=== PATIENT | male | born 1985 | race Hispanic/Latino ===

== ENCOUNTER 2020-03-10 15:07 | Emergency (ER) | payer SELFPAY ==
--- NOTE | ~2020-03-10 | XR_ITS ---
EXAMINATION: XR ankle LT min 3V DATE: 03/10/2020 15:32 INDICATION: Left ankle injury and pain. TECHNIQUE: 4 views of left ankle were obtained. COMPARISON: None. FINDINGS: There is an oblique fracture of distal fibula with medial aspect of the fracture line 3 mm distal to the level of the tibial plafond. The distal fracture fragment demonstrates 1 mm posterolate ral displacement. Joint spaces are normal. There is ankle soft tissue swelling. IMPRESSION: 1. Oblique fracture of distal fibula. Reviewed, dictated and finalized at location A. [facility]
[2020-03-10 15:21] VITALS: BP 138/85; PULSE 80; RESP 20; TEMP 36.9; O2SAT 99
--- NOTE | 2020-03-10 15:44 | ED.LOWEXIN ---
HPI - Extremity Injury (Lower) General Chief Complaint: Extremity Injury, Lower Stated Complaint: ankle Time Seen by Provider: 03/10/20 15:25 Source: patient Mode of arrival: ambulatory Limitations: no limitations History of Present Illness HPI Narrative: Patient states a few minutes ago he stepped wrong and heard his ankle pop. He says he has had no pain. Lateral ankle has swelled moderately since this happened. He comes in because he heard a pop when he stepped funny. He has no pain he says. Related Data Allergies Allergy/AdvReac Type Severity Reaction Status Date / Time No Known Allergies Allergy Verified 03/10/20 15:28 Review of Systems Review of Systems: Narrative: Review of systems negative except as above. [facility] Past Medical History Medical History No significant past medical history Surgical History Surgical History No significant past surgical history Family History Family History Mother of unknown cause Social History Social History (Updated 03/10/20 @ 16:19 by Mic Mas MD) Smoking status: Current some day smoker Additional smoking assessment comments: He smokes at times when he is drinking Alcohol use details: He drinks alcohol at times Occupation/Education: occupation Additional occupation/education comments: runs a [employer] Gender identity (if verbalized by the patient): Male Exam Const: General: healthy appearing and no acute distress HENMT: Head: normal to inspection General nose exam: Normal nares present Face and sinus: normal facial exam Eyes: General: appearance normal, both eyes and all related structures Neck: Neck: normal visual inspection Chest: Chest palpation & inspection: normal inspection of the chest Resp: Effort & Inspection: normal respiratory effort Auscultation: clear to auscultation bilaterally Cardio: Rate: regular rate Rhythm: regular rhythm GI: GI Palp: Yes Soft to palpation Skin: General skin exam: normal color Neuro: General: patient oriented x3 Extrem: General: normal to inspection Other: Left lateral ankle is moderately swollen and has some mild bruising. He denies pain as I press distal tibia and fibula together. Psych: Appearance: grossly normal Mental Status: mental status grossly normal Thought content: Yes Normal thought content present Course Course Emergency Course: The plain films were reviewed with the patient. He was sent home with an OCL splint and a list of orthopedic doctors to follow up with. I did not provide him with anything for pain as he consistently denied pain. Vital Signs Vital signs: Vital Signs Temperature 36.9 C 03/10/20 15:21 Pulse Rate 80 03/10/20 15:21 Respiratory Rate 20 03/10/20 15:21 Blood Pressure 138/85 03/10/20 15:21 Pulse Oximetry 99 03/10/20 15:21 Temperature 36.9 C 03/10/20 15:21 Pulse Rate 80 03/10/20 15:21 Respiratory Rate 20 03/10/20 15:21 Blood Pressure 138/85 03/10/20 15:21 Pulse Oximetry 99 03/10/20 15:21 Discharge Plan Discharge Clinical Impression: Ankle fracture, lateral malleolus, closed Patient Disposition: Home, Self-Care Condition: Stable Instructions: Antibiotic Form Additional Instructions: Follow up with orthopedic doctor early next week. Use crutches do not bear weight on the leg. Prescriptions: New (DME) crutch Misc Qty: 2 RF: 0 Follow-up/Referrals: UNKNOWN,DOCTOR [Primary Care Provider] - Time of Disposition: 16:13
[2020-03-10 16:26] VITALS: PULSE 80; RESP 20; O2SAT 100
== END 2020-03-10 16:28 | disposition home or self-care (01) ==
PROVIDERS: Emergency Provider Emergency Medicine
DX: S82.492A Other fracture of shaft of left fibula, initial encounter for closed fracture (principal)
CPT/HCPCS: 29515; 73610; 99283; 99284